=== PATIENT | female | born 1945 | race Caucasian/White ===

== ENCOUNTER → 2017-12-21 | Outpatient (CLI) | payer BC, MEDICARE ==
[~2017-12-21] MED LIST: BUDE10.2 IH; CHOL10003 PO; HYDR12.58 PO; IOHEXOL 240 MG/ML 50ML VIAL. PO ONE; IOHEXOL 300 MG/ML 100ML VIAL. IV ONE; OMEP20TA63 PO; SIMV10TA3 PO
--- NOTE | 2017-12-21 11:57 | KCIC ---
CLINICAL HISTORY: One-month history of pelvic pain. History of hysterectomy, cholecystectomy and appendectomy. COMPARISON: none TECHNIQUE: CT of the abdomen and pelvis following the administration of 100 mg of Omnipaque 300 intravenous contrast. Oral contrast was administered. Coronal and sagittal reformatted images were generated. FINDINGS: Lower chest: Visualized lung bases are clear. ABDOMEN AND PELVIS: Liver and biliary system: No focal liver lesion. Minimal central intrahepatic biliary ductal prominence. There has been a cholecystectomy. No extrahepatic biliary ductal dilatation. Spleen: Subcentimeter hypodense lesion within the spleen is unremarkable. Pancreas: Unremarkable Adrenal glands: Unremarkable Kidneys: Symmetric nephrograms. No focal renal lesion. No hydronephrosis. Lymph nodes/retroperitoneum: No abdominal or pelvic lymphadenopathy. No definite intraperitoneal mass is identified. Vessels: Aorta is normal in caliber without a splenic calcifications. Bowel/Peritoneal cavity: There has been an appendectomy. Moderate colonic stool content. No abnormal small or large bowel dilatation. No abdominal or pelvic ascites. Bladder: Unremarkable Pelvic organs: There has been a hysterectomy. Abdominal/Pelvic wall: Changes of right ventral abdominal wall surgical repair changes are seen. Bones: Multilevel degenerative changes of the lumbar spine. There is 4 mm anterolisthesis of L3 on L4. Chondrocalcinosis of the symphysis pubis with associated degenerative change. IMPRESSION: 1. No CT findings are seen to correlate with the patient's abdominal pain. 2. Minimal prominence of the intrahepatic biliary ducts likely from prior cholecystectomy. No common bile duct dilatation. 3. No abdominal or pelvic ascites. No abdominal or pelvic lymphadenopathy or mass is definitively identified. Electronically signed by: Teddy Pack MD (12/21/2017 11:53 AM) [facility]
== END | disposition home or self-care (01) ==
LOC: KCIC CT 08:35
PROVIDERS: ATTEND Obstetrics & Gynecology
DX: R10.2 Pelvic and perineal pain (principal); D73.89 Other diseases of spleen; Z90.49 Acquired absence of other specified parts of digestive tract; Z90.89 Acquired absence of other organs; Z90.710 Acquired absence of both cervix and uterus
CPT/HCPCS: 74177; 82565; Q9966; Q9967

== ENCOUNTER → 2020-07-25 | Outpatient (CLI) | payer MEDICARE, OTHER ==
[~2020-07-25] MED LIST changes: -IOHEXOL 240 MG/ML 50ML VIAL. PO ONE; -IOHEXOL 300 MG/ML 100ML VIAL. IV ONE; +SIMV10TA15 PO; -SIMV10TA3 PO
--- NOTE | 2020-07-25 14:00 | KCIC ---
EXAM: Bilateral digital diagnostic mammogram with tomosynthesis; left breast sonogram. HISTORY: 74-year-old female presents with a left breast lump. TECHNIQUE: Full-field digital craniocaudal and mediolateral oblique 2D and 3D tomosynthesis images of both breasts are obtained for evaluation. Computer aided detection was applied. Sonographic imaging of the left breast targeted to the site of palpable concern was also performed. COMPARISON: 08/16/2015 BREAST PARENCHYMAL DENSITY: Level C - Heterogeneously dense. FINDINGS: There is no new suspicious mass, microcalcification or region of architectural distortion. There are stable areas of nodularity and asymmetry within both breasts, allowing for differences in t echnique. There are benign-appearing calcifications within both breasts. Sonographic imaging of the left breast demonstrates a 5 mm cyst or focally dilated duct within the 5: 00 retroareolar location. No suspicious sonographic finding is seen in the region of palpable concern at the 5:00 position. There are benign-appearing axillary lymph nodes. IMPRESSION: 1. No new suspicious mammographic finding and no suspicious left breast sonographic finding. 2. BI-RADS Category 2: Benign finding(s). RECOMMENDATION: Annual mammography is recommended. Continued clinical follow-up of palpable abnormali ties is recommended. Negative imaging should not preclude the decision to biopsy a palpable abnormali ty if there is clinical concern. If your mammogram demonstrates that you have dense breast tissue, which could hide abnormalities, and if you have other risk factors for breast cancer that have been identified, you might benefit from s upplemental screening tests that may be suggested by your ordering physician. Dense breast tissue, i n and of itself, is a relatively common condition. This information is not provided to cause undue c oncern, but rather to raise your awareness and to promote discussion with your physician regarding th e presence of other risk factors, in addition to dense breast tissue. A report of your mammography re sults will be sent to you and your physician. You should contact your physician if you have any ques tions or concerns regarding this report. Mammography is a sensitive method for finding small breast cancers, but it does not detect them all a nd is not a substitute for careful clinical examination. A negative mammogram does not negate a clin ically suspicious finding and should not result in delay in biopsying a clinically suspicious abnorma lity. PQRS compliance statement - Patient information was entered into a reminder system with a target due date for the next mammogram. "Our facility is accredited by the [employer] Mammography [employer]." Electronically signed by: Mirtha Medeiros MD (07/25/2020 1:57 PM) [id number]
== END ==
LOC: KCIC MAMMO 12:43
PROVIDERS: ATTEND Obstetrics & Gynecology
DX: R92.2 Inconclusive mammogram (principal); N63.20 Unspecified lump in the left breast, unspecified quadrant
CPT/HCPCS: 76641; 77066; G0279; 77062